=== PATIENT | male | born 2000 | race Caucasian/White ===

== ENCOUNTER 2021-08-10 20:03 | Emergency (ER) | payer OTHER, BC ==
[~2021-08-10] VITALS: Ht 188 cm; Wt 83.0 kg
[2021-08-10 20:13] VITALS: BP 135/70
[2021-08-10] MEDS ORDERED: DEXAMETHASONE 4 MG TABLET ONE (20:46)
[2021-08-10] MEDS ORDERED: ONDANSETRON ODT 8 MG ONE (20:47)
[2021-08-10] MEDS ORDERED: ONDANSETRON ODT 8 MG PO ONE (21:00)
[2021-08-10] MEDS ORDERED: DEXAMETHASONE 4 MG TABLET PO ONE (21:00)
== END 2021-08-10 21:00 | disposition home or self-care (01) ==
LOC: ED 20:30
DX: B34.9 Viral infection, unspecified (principal)
CPT/HCPCS: 99283; Q0162